=== PATIENT | male | born 1990 | race African-American/Black ===

== ENCOUNTER 2018-09-04 10:55 | Emergency (ER) | payer OTHER ==
[~2018-09-04] VITALS: Ht 180.3 cm; Wt 68.0 kg
[2018-09-04 11:32] LABS: URINE BILIRUBIN NEGATIVE (Negative); URINE BLOOD 3+ (Negative); URINE CLARITY CLOUDY; URINE COLOR YELLOW; URINE GLUCOSE-RANDOM* NEGATIVE (Negative); URINE KETONES TRACE (Negative); URINE LEUKOCYTES 2+ (Negative); URINE NITRITE POSITIVE (Negative); URINE PROTEIN (DIPSTICK) 2+ (Negative); URINE SPECIFIC GRAVITY 1.025 (1.005-1.035)
[2018-09-04 11:35] LABS: ABSOLUTE NEUTROPHILS 7.2 thou/uL (1.4-8.2); BASOPHILS 0.8 % (0.0-2.0); HEMOGLOBIN 14.5 gm/dL (14.0-18.0); LYMPHOCYTES 15.9 % (24.0-44.0); MCH 34.6 pg (26.0-34.0); MCHC 33.8 g/dL (28.0-37.0); MCV 102.5 fL (80.0-100.0); PLATELET COUNT 289 thou/uL (150-400); POLYS 72.3 % (36.0-66.0); RBC 4.19 mil/uL (4.50-6.00); RDW 12.5 % (10.5-14.5)
[2018-09-04 11:41] LABS: POTASSIUM 3.9 mmol/L (3.5-5.1)
[2018-09-04 11:43] LABS: SQUAMOUS 0-3 Few /LPF (0-3); URINE WBC >25 Many /HPF (0-5)
[2018-09-04 11:44] LABS: CASTS None Seen /LPF (None Seen); CRYSTALS None Seen /LPF (None Seen); URINE RBC 3-10 Few /HPF (0-2)
[2018-09-04 11:47] LABS: ALBUMIN 4.4 g/dL (3.4-5.0); TOTAL PROTEIN 8.6 g/dL (6.4-8.2)
[2018-09-04 13:12] VITALS: BP 114/64
[2018-09-04] MEDS ORDERED: MACROBID 100 M100 M2 PO (13:14)
== END 2018-09-04 13:22 | disposition home or self-care (01) ==
LOC: ER 10:55
PROVIDERS: Nurse Practitioner
DX: N30.01 Acute cystitis with hematuria (principal); F17.210 Nicotine dependence, cigarettes, uncomplicated; Z88.0 Allergy status to penicillin